=== PATIENT | male | born 1985 | race Two or more races ===

== ENCOUNTER 2018-05-07 20:49 | Emergency (ER) | payer OTHER ==
[~2018-05-07] VITALS: Ht 177.8 cm; Wt 106.6 kg
== END 2018-05-07 23:46 | disposition home or self-care (01) ==
LOC: ER 20:49
DX: J06.9 Acute upper respiratory infection, unspecified (principal); J11.1 Influenza due to unidentified influenza virus with other respiratory manifestations

== ENCOUNTER 2018-08-29 14:32 | Emergency (ER) | payer OTHER ==
[~2018-08-29] VITALS: Ht 177.8 cm; Wt 102.1 kg
== END 2018-08-29 19:22 | disposition home or self-care (01) ==
LOC: ER 14:32
DX: R51 Headache (principal)